=== PATIENT | female | born 1955 | race Caucasian/White ===

== ENCOUNTER 2021-02-07 15:19 | Emergency (ER) | payer MEDICARE ==
[~2021-02-07] VITALS: Ht 172.7 cm; Wt 72.7 kg
--- NOTE | 2021-02-07 15:24 | NUR ---
[facility]. PT AX0X4. PT SAT'ING 85 ON RA, PLACED ON 2L N.C. PT RESTING ON GURNEY, NADN/VSS. Addendum: 02/07/21 at 1545 by [email or web address] PT B[facility] [place] FOR [facility] D/T EVICTION. PER EMS "[facility] STATED PT COULD GO TO CUSTODIAL OR THE ER". PT'S LAST DRINK TODAY, PT STATES SHE DRINKS A "QUART A DAY." PT AX0X4. PT SPO2 85 ON RA, IS NOW 96% AFTER 2L N.C. PT CHANGED INTO GOWN, MONITORS IN PLACE. PT RESTING ON GURNEY, NADN/VSS. 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 PT CALM AND COOPERATIVE, APPROPRIATE TOWARDS STAFF.
--- NOTE | 2021-02-07 16:23 | NUR ---
PT RESTING ON GURNEY, RESPIRATION EVEN AND UNLABORED. NADN/VSS. COMFORT MEASURES PROVIDED. CALL LIGHT WITHIN REACH
--- NOTE | 2021-02-07 17:47 | NUR ---
PT AMBULATORY TO BR. SUJEY/BENJI. PT STATES SHE FEELS A LOT BETTER. CALL LIGHT WITHIN REACH. NO NEEDS AT THIS TIME. Addendum: 02/07/21 at 1809 by [email or web address] PT AMBULATORY TO BR, SOMEWHAT UNSTEADY. SUJEY/BENJI. PT STATES SHE FEELS A LOT BETTER. CALL LIGHT WITHIN REACH. NO NEEDS AT THIS TIME.
--- NOTE | 2021-02-07 18:24 | NUR ---
PT RESTING ON GURNEY, RESPIRATION EVEN AND UNLABORED. PT DENIES PAIN, STATES SHE "FEELS A LOT BETTER." NADN/VSS. CALL LIGHT WITHIN REACH. NO NEEDS AT THIS TIME
--- NOTE | 2021-02-07 18:57 | NUR ---
REPORT TO PRATIMA GUERRERO
[2021-02-07 21:27] VITALS: BP 141/84
== END 2021-02-07 21:29 | disposition left against medical advice (07) ==
LOC: ED 21:00
DX: G92 Toxic encephalopathy (principal); F10.129 Alcohol abuse with intoxication, unspecified; Y90.0 Blood alcohol level of less than 20 mg/100 ml
CPT/HCPCS: 99285